=== PATIENT | male | born 1945 ===

== ENCOUNTER 2019-02-01 10:12 | Day surgery (SDC) | payer MEDICARE ==
--- NOTE | 2019-02-01 07:17 | Anesthesia Consultation ---
Anesthesia Consult and Med Hx Date of service: 02/01/19 - Airway Anesthetic Teeth Evaluation: Partials ROM Head & Neck: Adequate Mental/Hyoid Distance: Adequate Mallampati Class: Class II Intubation Access Assessment: Probably Good - Pulmonary Exam CTA: Yes - Cardiac Exam Cardiac Exam: RRR - Pre-Operative Health Status ASA Pre-Surgery Classification: ASA3 Proposed Anesthetic Plan: MAC - Cardiovascular System Hx Hypertension: Yes - Endocrine Hx Non-Insulin Dependent Diabetes: Yes
--- NOTE | 2019-02-01 07:17 | Anesthesia Day of Surgery ---
Anesthesia Day of Surgery - Day of Surgery Patient Examined: Yes Patient H&P Reviewed: Yes Patient is NPO: Yes Beta Blockers: No (N/A)
[~2019-02-01 10:12] MED LIST: NACL 0.9% 1000 ML 1,000 ML IV SCH
[2019-02-01] MEDS ORDERED: WATER FOR IRRIG STERILE IR ONE (10:57)
[2019-02-01] MEDS ORDERED: DIPRIVAN 10 MG/ML IV ONE ×3 (11:14)
--- NOTE | 2019-02-01 12:34 | Procedure Note ---
Date of procedure: 02/01/19 Pre-op diagnosis: Colon Polyp Screening Post-op diagnosis: other (Mu) Procedure: Colonoscopy and Snare Polypectomy and Cold Biopsy Anesthesia: MAC Surgeon: GOLDEN LEOMS Estimated blood loss: minimal Pathology: list Specimen disposition: to lab Condition: stable Disposition: same day (Resume home medication. Hold aspirin and NSAID for 5 days. Follow up i n 1 to 2 weeks ([phone]).)
[2019-02-01 13:10] VITALS: BP 127/67
--- NOTE | 2019-02-01 14:51 | Operative Report ---
PROCEDURE: Colonoscopy. INDICATIONS: This is a 73-year-old -[place] gentleman who had a colonoscopy as part of colon polyp screening. He does have a family history of breast cancer. DESCRIPTION OF PROCEDURE: Colonoscopy was done after getting informed consent with MAC anesthesia. Initial rectal exam was unremarkable. Instrument was passed through the rectum onto the cecum, which was identified by the ileocecal valve and appendiceal orifice. Visualization was fair to good. The cecum had 3 polyps, one was 8-9 mm polyp that was removed by cold biopsy. There were two larger polyps, one about 10 mm and other probably about 11-12 mm in diameter. The 10 mm polyp was removed by snare excision and retrieved, slightly larger one about 11-12 mm in diameter, which was also sessile was removed by snare excision, but could not be retrieved. The remaining part of the proximal colon, transverse colon showed normal mucosa. There was a small 8 mm polyp noted in the mid transverse colon, which was removed by cold biopsy. The remaining part of the transverse colon, left colon, which included the descending and the sigmoid colon showed normal mucosa and the rectum showed minor internal hemorrhoids in the retroverted view. There was minimal bleeding from the biopsies and polypectomy sites. No complications associated with the procedure. ASSESSMENT: Colon polyp screening, family history of cancer, multiple polyps in the proximal and one in the transverse colon that were removed, and no diverticular disease noted, minor internal hemorrhoid. The patient will be asked to avoid aspirin and aspirin-related products for the next few days. Resume previous home medication. Follow up in the office in 1-2 weeks' time. RNMartha was in the room throughout the entirety of the procedure. JOB# [id number] TIFFANI/TOMA
== END 2019-02-01 13:08 | disposition home or self-care (01) ==
LOC: GIO 10:12
DX: Z12.11 Encounter for screening for malignant neoplasm of colon (principal); D12.3 Benign neoplasm of transverse colon; K63.5 Polyp of colon; K57.30 Diverticulosis of large intestine without perforation or abscess without bleeding; K64.8 Other hemorrhoids; E78.00 Pure hypercholesterolemia, unspecified; I10 Essential (primary) hypertension; E11.9 Type 2 diabetes mellitus without complications; Z80.8 Family history of malignant neoplasm of other organs or systems; Z79.899 Other long term (current) drug therapy; Z79.84 Long term (current) use of oral hypoglycemic drugs; Z79.01 Long term (current) use of anticoagulants; Z98.890 Other specified postprocedural states; Z80.3 Family history of malignant neoplasm of breast
CPT/HCPCS: 45380; 45385; 82962; 88305; J2704; J7030